=== PATIENT | male | born 1975 | race Two or more races ===

== ENCOUNTER 2024-09-13 12:25 | Day surgery (SDC) | payer MEDICAID, SELFPAY ==
[2024-09-12 13:47] VITALS: BMI 29.5
[2024-09-13] VITALS (10 sets, daily range): BP systolic 100–126; BP diastolic 63–74; PULSE 50–78; RESP 12–20; TEMP 36.6; O2SAT 94–98; BMI 29.8
[2024-09-13] MEDS: fentaNYL CIT INJ 50 mCg/ML AMP 2ML (ASD USE ONLY) IV (14:12)
[2024-09-13] MEDS: MIDAZOLAM INJ 1 MG/ML VIAL 2 ML (ASD USE ONLY) 2 MG IV (14:14)
--- NOTE | 2024-09-13 15:14 | SUR.PHASEII ---
1455 Pt more awake and alert. Speaks Israeli and Ethiopian. Denies pain or N/V. Abd remains soft. Pt passing flatus. Amie PO fluids.
--- NOTE | 2024-09-13 15:16 | SUR.PHASEII ---
1515 Pt assessment unchanged. No complaints. Amb with steady gait. Able to dress self. Pt and given DC instructions, via nanoscience technician. Both state understanding. Pt meets dc criteria-to home.
== END 2024-09-13 15:15 | disposition home or self-care (01) ==
PROVIDERS: PCP Family Medicine; Referring Provider Surgery; Visit Provider Surgery
PROC: 0DBE8ZX Excision of Large Intestine, Via Natural or Artificial Opening Endoscopic, Diagnostic (ICD-10-PCS; CPT 45380; principal; 2024-09-13 13:15)
DX: Z12.11 Encounter for screening for malignant neoplasm of colon (principal); E78.5 Hyperlipidemia, unspecified; R73.03 Prediabetes
CPT/HCPCS: 45378; J2250; J3010